=== PATIENT | female | born 1945 | race Caucasian/White ===

== ENCOUNTER 2018-03-18 13:51 | Day surgery (SDC) | payer MEDICARE ==
[2018-03-17 13:08] LABS: BASOPHILS # (AUTO) 0.2 X10'3 (0-0.2); BASOPHILS % (AUTO) 1.8 % (0-1); EOSINOPHILS # (AUTO) 0.2 X10'3 (0-0.9); EOSINOPHILS % (AUTO) 2.4 % (0-6); HEMATOCRIT 42.5 % (35.0-45.0); HEMOGLOBIN 13.8 g/dl (12.0-16.0); LYMPHOCYTES # (AUTO) 1.7 X10'3 (1.1-4.8); LYMPHOCYTES % (AUTO) 19.3 % (21-51); MEAN CORPUSCULAR HEMOGLOBIN 31.1 PG (27.0-31.0); MEAN CORPUSCULAR HGB CONC 32.6 % (33.0-36.5); MEAN CORPUSCULAR VOLUME 95.3 FL (78-98); MEAN PLATELET VOLUME 9.5 FL (7.4-10.4); MONOCYTES # (AUTO) 0.8 X10'3 (0-0.9); MONOCYTES % (AUTO) 9.2 % (2-12); NEUTROPHILS % (AUTO) 67.3 % (42-75); PLATELET COUNT 303 X10'3 (140-440); RED BLOOD COUNT 4.45 X10'6 (4.20-5.60); RED CELL DISTRIBUTION WIDTH 13.5 % (11.5-14.5)
[2018-03-17 13:34] LABS: ALBUMIN 3.4 G/DL (3.4-5.0); ANION GAP 11 (8-16); BLOOD UREA NITROGEN 18 MG/DL (7-18); BUN/CREATININE RATIO 19.6 (6.6-38.0); CALCIUM 8.7 MG/DL (8.5-10.1); CHLORIDE 101 MMOL/L (99-107); CREATININE 0.92 MG/DL (0.40-0.90); GLUCOSE 103 MG/DL (70-104); POTASSIUM 3.8 MMOL/L (3.5-5.1); SODIUM 139 MMOL/L (135-145); TOTAL CARBON DIOXIDE 27.3 MMOL/L (24-32); eGFR 60 ML/MIN
[2018-03-17 13:38] LABS: INR 1.5 INR; PARTIAL THROMBOPLASTIN TIME 31 SECONDS (22-32); PROTHROMBIN TIME 15.3 SECONDS (9.0-12.0)
[~2018-03-18] VITALS: Ht 162.6 cm; Wt 89.8 kg
[2018-03-18] VITALS (9 sets, daily range): BP systolic 107–123; BP diastolic 36–56
[2018-03-18] MEDS ORDERED: diphenhydrAMINE 25mg capsule PO PRN (14:25)
[2018-03-18] MEDS ORDERED: LORazepam 0.5 MG tablet PO PRN (14:25)
[2018-03-18] MEDS ORDERED: normal saline 1000ml 1,000 ML IV SCH (14:25)
[2018-03-18] MEDS ORDERED: ZOLP5TAB8 PO (15:41)
[2018-03-18] MEDS ORDERED: COU1T PO (15:41)
[2018-03-18] MEDS ORDERED: ATOR80TA PO (15:41)
[2018-03-18] MEDS ORDERED: QUIN1TAB25 PO (15:41)
[2018-03-18] MEDS ORDERED: MULT-227 PO (15:41)
[2018-03-18] MEDS ORDERED: LEVO25TA2 PO (15:41)
[2018-03-18] MEDS ORDERED: METO50TA17 PO (15:41)
[2018-03-18] MEDS ORDERED: IBUP-24 PO (15:41)
[2018-03-18] MEDS ORDERED: heparin 1,000 UNITS/NS 500ml 500 ML ONE (17:00)
[2018-03-18] MEDS ORDERED: midazolam 2 mg/2 ml injection ONE (17:00)
[2018-03-18] MEDS ORDERED: LIDOcaine 1% (10mg/ml)w/preservative injection 20ml MDV ONE (17:00)
[2018-03-18] MEDS ORDERED: iohexol 350MG/ML 100ml bottle IV ONE (17:00)
[2018-03-18] MEDS ORDERED: fentaNYL/PF 50MCG/1 ML 2ML syringe ONE (17:00)
== END 2018-03-18 20:20 | disposition home or self-care (01) ==
LOC: SSTAY O 13:51
PROVIDERS: ATTEND Internal Medicine Interventional Cardiology
DX: I25.10 Atherosclerotic heart disease of native coronary artery without angina pectoris (principal); G47.33 Obstructive sleep apnea (adult) (pediatric); I48.91 Unspecified atrial fibrillation; E78.00 Pure hypercholesterolemia, unspecified; I25.2 Old myocardial infarction; I11.9 Hypertensive heart disease without heart failure; K21.9 Gastro-esophageal reflux disease without esophagitis; Z79.1 Long term (current) use of non-steroidal anti-inflammatories (NSAID); Z88.0 Allergy status to penicillin; Z86.74 Personal history of sudden cardiac arrest; Z87.891 Personal history of nicotine dependence; Z87.2 Personal history of diseases of the skin and subcutaneous tissue; Z79.01 Long term (current) use of anticoagulants; Z79.899 Other long term (current) drug therapy; Z98.890 Other specified postprocedural states
CPT/HCPCS: 36415; 80048; 85025; 85610; 85730; 93458; 99152; A6257; J1644; J2001; J2250; J3010; J7030; Q0163; Q9967; A4620; C1769

== ENCOUNTER 2022-08-26 15:55 | Emergency (ER) | payer MEDICARE, OTHER ==
[~2022-08-26] VITALS: Ht 162.6 cm; Wt 90.9 kg
[~2022-08-26 15:55] MED LIST: ATOR80TA PO; COU1T PO; IBUP-24 PO; LEVO25TA2 PO; METO50TA17 PO; MULT-227 PO; QUIN1TAB16 PO; ZOLP5TAB8 PO
[2022-08-26 16:21] LABS: BASOPHILS # (AUTO) 0.2 X10'3 (0-0.2); BASOPHILS % (AUTO) 1.5 % (0-1); EOSINOPHILS # (AUTO) 0.2 X10'3 (0-0.9); HEMATOCRIT 39.9 % (35.0-45.0); HEMOGLOBIN 13.4 g/dl (12.0-16.0); LYMPHOCYTES % (AUTO) 18.6 % (21-51); MEAN CORPUSCULAR HEMOGLOBIN 31.6 PG (27.0-31.0); MEAN CORPUSCULAR HGB CONC 33.6 g/dL (33.0-36.5); MEAN PLATELET VOLUME 9.5 FL (7.4-10.4); MONOCYTES # (AUTO) 0.7 X10'3 (0-0.9); MONOCYTES % (AUTO) 6.5 % (2-12); NEUTROPHILS # (AUTO) 7.6 X10'3 (1.8-7.7); NEUTROPHILS % (AUTO) 71.4 % (42-75); PLATELET COUNT 267 X10'3 (140-440); RED BLOOD COUNT 4.24 X10'6 (4.20-5.60); WHITE BLOOD COUNT 10.7 X10'3 (4.5-11.0)
[2022-08-26 16:38] LABS: ALANINE AMINOTRANSFERASE 26 U/L (12-78); ALBUMIN 3.2 G/DL (3.4-5.0); ALBUMIN/GLOBULIN RATIO 0.7 (1.1-1.5); ALKALINE PHOSPHATASE 105 IU/L (46-116); ANION GAP 11 (8-16); ASPARTATE AMINO TRANSFERASE 21 U/L (10-37); BLOOD UREA NITROGEN 16 MG/DL (7-18); BUN/CREATININE RATIO 18.6 (10.0-20.0); CALCIUM 9.2 MG/DL (8.5-10.1); CHLORIDE 102 MMOL/L (99-107); CREATININE 0.86 MG/DL (0.40-0.90); GLUCOSE 115 MG/DL (70-104); POTASSIUM 3.3 MMOL/L (3.5-5.1); SODIUM 141 MMOL/L (135-145); TOTAL CARBON DIOXIDE 28.1 MMOL/L (24-32); TOTAL PROTEIN 7.9 G/DL (6.4-8.2); eGFR 64 ML/MIN
[2022-08-26 19:16] VITALS: BP 183/86
[2022-08-26] MEDS ORDERED: albuterol 2.5 MG/3 ML nebule CONTNEB ONE (19:35)
[2022-08-26] MEDS ORDERED: DOXYCYCLINE 100MG CAPSULE PO ONE (19:35)
[2022-08-26] MEDS ORDERED: predniSONE 20 mg tablet PO ONE (19:35)
[2022-08-26] MEDS ORDERED: ALBU8HFA PO (20:16)
[2022-08-26] MEDS ORDERED: DOXY-1 PO (20:16)
[2022-08-26] MEDS ORDERED: PRED20TA PO (20:16)
== END 2022-08-26 20:25 | disposition home or self-care (01) ==
LOC: ER 15:55
DX: I48.0 Paroxysmal atrial fibrillation (principal); R06.02 Shortness of breath; R05.9 Cough, unspecified; Z88.0 Allergy status to penicillin; Z79.899 Other long term (current) drug therapy
CPT/HCPCS: 36415; 71045; 80053; 83880; 84484; 85025; 93005; 94640; 94644; 99285; J7512

== ENCOUNTER 2024-09-15 08:34 | Emergency (ER) | payer MEDICARE, OTHER ==
[~2024-09-15] VITALS: Ht 162.6 cm; Wt 95.5 kg
[~2024-09-15 08:34] MED LIST changes: +ATOR-429 PO; -ATOR80TA PO
--- NOTE | 2024-09-15 08:39 | ELECTROCARDIOGRAPH REPORT ---
[facility] Test Date: 2024-09-15 Test Time: 08:38:13 Pat Name: AVERY PATEL Department: EMERGENCY ROOM Room: Gender: F [employer] Model: : 1945 Requested By: ANGELA HASKINS Order Number: [id number] Reading MD: Measurements Intervals [place] Rate: 106 P: 0 PA: 0 QRS: 19 QRSD: 92 T: 7 QT: 360 QTc: 479 Interpretive Statements Age not entered, assumed to be 48 years old for purpose of ECG interpretation Atrial fibrillation Borderline repolarization abnormality Please click the below link to view image of tracing.
--- NOTE | 2024-09-15 08:40 | Physician Documentation ---
History of Present Illness ~ Stated Complaint: SOB AFIB Time Seen by MD: 08:42 Primary Medical Doctor: DR. YOUNGER FROM [facility] This is an 79-year-old female who presents to the emergency department this morning due to concerns for shortness of breath and atrial fib history. She reports that her heart rate has been much higher today. Her paradi tender is Dr. Condon. Hx hypothyroidism. On warfarin 2 mg every evening. Medication Reconciliation Allergies: Coded Allergies: Penicillins (Verified Allergy, Unknown, 03/18/18) Scheduled Atorvastatin Calcium* (Lipitor*), 1 TABLET PO HS, (Reported) Metoprolol Tartrate* (Metoprolol Tartrate*), 1 TAB PO Q12H, (Reported) Multivitamins (Multiple Vitamin), 1 EACH PO DAILY, (Reported) Quinapril/Hydrochlorothiazide (Quinapril-Hctz 20-12.5 mg Tab), 1 TAB PO DAILY, (Reported) Warfarin Sodium* (Coumadin*), 2 TAB PO DAILY, (Reported) levothyroxine sodium* (Synthroid*), 2 TAB PO DAILY, (Reported) Scheduled PRN Ibuprofen (Advil), 200 MG PO Q6H PRN for pain, (Reported) Zolpidem Tartrate* (Ambien*), 2 TAB PO HS PRN for INSOMNIA, (Reported) Past Medical History Past Medical History: Atrial Fibrillation Past Surgical History: noncontributory Drug Use: none Lives In: Home Review of Systems ROS As stated above in the HPI, otherwise all systems are reviewed and negative. Physical Exam Physical Exam General: Alert, no apparent distress. Neck: Full range of motion. Respiratory: Lungs clear, no respiratory distress. Chest: No accessory muscle use. Cardiovascular: Irregular rate and rhythm, no murmurs. Tachycardic Gastrointestinal: Soft, nontender, nondistended. Bowels sounds present. Extremities: Normal range of motion, no deformity. Neurologic: Oriented x4. Psychiatric: Normal mood and affect. Skin: Normal color, warm and dry. 1+ edema BLE. Progress Progress Note 0943: On reevaluation, patient denies concerns at rest. It is noted that with ambulation, her heart rate jumps up significantly into the 120's and higher but reduces when not active. Her initial troponin is negative. Her BNP is elevated at 983. TSH WNL. With questioning, she shares that her main concern is that she has lately been able to feel her heart rate. This issue has been noted over the last week and is keeping her awake at night. She has an appt with Dr. Condon this coming Saturday. 1239: Phone consultation with Dr. John Condon who advises no medications changes at this time and is ok with patient going home. Results/Orders Results/Orders Orders - NELY HASKINS MOSHGIACH Hs Troponin I W Calculations (09/15/24 11:36) Chest,Single View (09/15/24 08:37) Saline Lock (09/15/24 08:41) Monitor (09/15/24 08:41) Observation Status Start (09/15/24 09:41) Gait Test (09/15/24 ) Completed Orders - NELY HASKINS MOSHGIACH Cbc/Diff (09/15/24 08:36) MG (09/15/24 08:36) PBNP (09/15/24 08:36) Electrocardiogram (09/15/24 08:36) Hs Troponin I W Calculations (09/15/24 08:36) Hs Troponin I W Calculations (09/15/24 10:36) CMP (09/15/24 08:36) Chest,Single View (09/15/24 08:37) Metoprolol Tartrate Inj (Lopressor Iv) (09/15/24 08:45) Pt Inr (09/15/24 08:46) TSH (09/15/24 08:42) Metoprolol Tartrate Tablet (Lopressor Ta (09/15/24 09:40) Furosemide Tablet (Lasix Tablet) (09/15/24 09:40) Potassium Cl Sr Tablet (K-Dur Tablet) (09/15/24 09:45) Potassium Cl 10meq Er Tablet (Klor-Con 1 (09/15/24 09:45) Medications Received in ER Medications (Trade) Dose Ordered Sig/Kerrie Route PRN Reason Start Time Stop Time Status Last Admin Dose Admin (Lopressor tablet) 50 mg ONCE ONCE PO 09/15/24 09:40 09/15/24 09:44 DC 09/15/24 10:07 50 MG (Lasix tablet) 20 mg ONCE ONCE PO 09/15/24 09:40 09/15/24 09:41 DC 09/15/24 10:07 20 MG (Klor-Con 10mEq ER tablet) 10 meq ONCE ONCE PO 09/15/24 09:45 09/15/24 09:46 DC 09/15/24 10:07 10 MEQ Vital Signs 09/15/24 09/15/24 09/15/24 09/15/24 08:39 09:10 10:07 10:21 Temp 97.8 Pulse 117 81 68 78 Resp 22 14 B/P (MAP) 153/79 178/112 (134) Pulse Ox 98 98 O2 Flow Rate 0 Laboratory Tests Test 09/15/24 08:42 09/15/24 10:37 White Blood Count 9.1 Red Blood Count 4.61 Hemoglobin 14.4 Hematocrit 43.4 Mean Corpuscular Volume 94.1 Mean Corpuscular Hemoglobin 31.3 H Mean Corpuscular Hemoglobin Concent 33.2 Red Cell Distribution Width 14.5 Platelet Count 295 Mean Platelet Volume 9.9 Neutrophils (%) (Auto) 65.5 Lymphocytes (%) (Auto) 23.4 Monocytes (%) (Auto) 7.8 Eosinophils (%) (Auto) 1.9 Basophils (%) (Auto) 1.4 H Neutrophils # (Auto) 6.0 Lymphocytes # (Auto) 2.1 Monocytes # (Auto) 0.7 Eosinophils # (Auto) 0.2 Basophils # (Auto) 0.1 CBC Comment Prothrombin Time 31.7 H INR International Normalized Ratio 3.5 Coagulation Comments Sodium Level 140 Potassium Level 3.4 L Chloride Level 104 Carbon Dioxide Level 27.5 Anion Gap 9 Blood Urea Nitrogen 20 H Creatinine 0.90 Estimated GFR/1.73 m2 60 BUN/Creatinine Ratio 22.2 H Glucose Level 136 H Calcium Level 8.8 Magnesium Level 1.9 Total Bilirubin 0.7 Aspartate Amino Transf (AST/SGOT) 21 Alanine Aminotransferase (ALT/SGPT) 26 Alkaline Phosphatase 111 Troponin I High Sensitivity 9 8 Pro-B-Type Natriuretic Peptide 983 H Total Protein 7.5 Albumin 3.0 L Globulin 4.5 H Albumin/Globulin Ratio 0.7 L Thyroid Stimulating Hormone (TSH) 4.17 Chemistry Comments Troponin I High Sens Percent Delta 11 Troponin I Hi Sens Absolute Change -1 EKG/XRAY/CT/US/VASC/MRI EKG : Additional Comment 3001: EKG interpreted to show afib rate of 106. No ST segment elevation. QTC 479 ms. Chest X-Ray : Additional Comments [address], [facility] [address] DIAGNOSTIC RADIOLOGY Patient: AVERY PATEL Medical Record: [id number] [facility] : 1945, Age: 79 Sex: Female Location: ER Patient Status: [facility] ER Service Date/Time: 09/15/24836 Ordering Physician: NELY HASKINS NP Exam: CHEST,SINGLE VIEW EXAM: DI CHEST,SINGLE VIEW HISTORY: dyspnea COMPARISON: None TECHNIQUE: Portable upright AP view of the chest was performed. FINDINGS: No pneumothorax, consolidative infiltrates, or pulmonary edema. There may be an azygous lobe. The heart is borderline enlarged. IMPRESSION: No acute intrathoracic process. Electronically Signed by:KALYN ANTONIO MD Date & Time: 09/15/24900 Dictated by: KALYN ANTONIO MD Dictation date and time: 09/15/24900 Primary Care Provider: NO PRIMARY CARE PROVIDER cc: NELY HASKINS MOSHGIACH ~ Heart Score: Heart Score Response (Comments) Value History Slightly Suspicious 0 EKG Normal 0 Age >65 2 Risk Factors 1 or 2 risk factors 1 Troponin Normal limit 0 Total 3 Medical Decision Making Differential Dx:Considerations: Include: angina, aortic dissection, chest wall pain, cholelithiasis, CHF, costochondritis, esophageal reflux/spasm, gastritis, herpes zoster, myocardial infarction, pericarditis, pleuritis, pancreatitis, pneumonia, pneumothorax, pulmonary embolus Additional Information This 79-year-old female presented with concerns for palpitations in the context of the history of atrial fib. Her initial heart rate and triaged in his in the 120s to 140s. However, when she was settled in her room, her heart rate was in the 100s. She was later given her morning dose of metoprolol tartrate 50 mg, and her heart rate reduced further into the 80s. She had 2- troponins. Her pro BNP was mildly elevated. She was given one dose of furosemide. Her paradi tender, Dr. Condon, was consulted. He notes that he is comfortable with her discharging home. No medication changes at this time. Patient does also have a primary care follow up later in his weight Departure Time of Disposition: 12:42 Impression: Primary Impression: Rapid atrial fibrillation Condition: Stable Discharge Instructions: Atrial Fibrillation Additional Instructions: Keep your appt to see Dr. Condon and your PCP both later this week. Return if worse. Referrals: NO PRIMARY CARE PROVIDER (PCP) Education Educated: Patient, Family Educated regarding: diagnosis, treatment, prognosis, need for follow up Signature Scribe Signature: x Attestation: The note accurately reflects work and decisions made by me.Nely Floyd NP 09/15/24 08:45 NELY HASKINS NP Sep 15, 2024 08:40
[2024-09-15 08:52] LABS: MEAN PLATELET VOLUME 9.9 FL (7.4-10.4); RED CELL DISTRIBUTION WIDTH 14.5 % (11.5-14.5)
[2024-09-15 09:01] LABS: INR 3.5 INR
[2024-09-15 09:04] LABS: CREATININE 0.90 MG/DL (0.40-0.90); TOTAL CARBON DIOXIDE 27.5 MMOL/L (24-32); eCRCL 42 ML/MIN; eGFR 60 ML/MIN
--- NOTE | 2024-09-15 09:04 | RADIOLOGY REPORT ---
EXAM: DI CHEST,SINGLE VIEW HISTORY: dyspnea COMPARISON: None TECHNIQUE: Portable upright AP view of the chest was performed. FINDINGS: No pneumothorax, consolidative infiltrates, or pulmonary edema. There may be an azygous lobe. The hea rt is borderline enlarged. IMPRESSION: No acute intrathoracic process.
[2024-09-15 09:10] LABS: PRO BRAIN NATRIURETIC PEPTIDE 983 PG/ML (0-450)
[2024-09-15] MEDS: metoprolol tartrate 1mg/ml inj IV ONE (09:10)
[2024-09-15] MEDS ORDERED: potassium Cl 20 mEq SR tablet PO ONE (09:45)
[2024-09-15 12:48] VITALS: BP 121/73; PULSE 73; RESP 16; TEMP 98; O2SAT 97
== END 2024-09-15 12:50 | disposition home or self-care (01) ==
LOC: ER 08:34
DX: I48.91 Unspecified atrial fibrillation (principal); E03.9 Hypothyroidism, unspecified; Z88.0 Allergy status to penicillin; Z88.8 Allergy status to other drugs, medicaments and biological substances; Z79.899 Other long term (current) drug therapy
CPT/HCPCS: 36415; 71045; 80053; 83735; 83880; 84443; 84484; 85025; 85610; 93005; 99285